=== PATIENT | male | born 1975 | race Caucasian/White ===

== ENCOUNTER 2018-01-24 09:39 | Emergency (ER) | payer OTHER ==
[~2018-01-24] VITALS: Ht 185.4 cm; Wt 86.4 kg
[2018-01-24] MEDS ORDERED: DIVA250T45 PO (10:08)
[2018-01-24] MEDS ORDERED: LISI-662 PO (10:08)
[2018-01-24] MEDS ORDERED: LOPE2 PO (10:08)
[2018-01-24] MEDS ORDERED: DIVA500T52 PO ×2 (10:08→11:01)
[2018-01-24] MEDS ORDERED: GABA-533 PO ×2 (10:08)
[2018-01-24] MEDS ORDERED: OMEP20 PO (10:09)
[2018-01-24] MEDS ORDERED: NALT50TA6 PO (10:09)
[2018-01-24] MEDS ORDERED: PRAZ5 PO (10:09)
[2018-01-24] MEDS ORDERED: NICO-703 TD (10:09)
[2018-01-24] MEDS ORDERED: RANI150T7 PO (10:09)
[2018-01-24 10:24] VITALS: BP 121/85
[2018-01-24] MEDS ORDERED: DIAZEPAM 5 MG TABLET PO ONE (10:45)
[2018-01-24] MEDS ORDERED: THIAMINE HCL 100 MG/ML 2ML VIAL IM ONE (10:45)
[2018-01-24] MEDS ORDERED: CYANOCOBALAMIN 1,000 MCG/ML VIAL IM ONE (10:45)
== END 2018-01-24 11:03 | disposition home or self-care (01) ==
LOC: EMS 09:42
DX: F10.239 Alcohol dependence with withdrawal, unspecified (principal); G43.909 Migraine, unspecified, not intractable, without status migrainosus; M54.9 Dorsalgia, unspecified; F41.9 Anxiety disorder, unspecified; M79.1 Myalgia; F19.10 Other psychoactive substance abuse, uncomplicated; F17.210 Nicotine dependence, cigarettes, uncomplicated; I10 Essential (primary) hypertension; Z76.0 Encounter for issue of repeat prescription
CPT/HCPCS: 96372; 99284; 99406; J3411; J3420

== ENCOUNTER 2018-01-30 15:14 | Emergency (ER) | payer OTHER ==
[~2018-01-30] VITALS: Ht 185.4 cm; Wt 86.0 kg
[~2018-01-30 15:14] MED LIST: DIVA500T52 PO; GABA-533 PO; LISI-662 PO; LOPE2 PO; NALT50TA6 PO; NICO-703 TD; OMEP20 PO; PRAZ5 PO; RANI150T7 PO
[2018-01-30] MEDS ORDERED: PSEUDOEPHEDRINE HCL 30 MG TABLET PO ONE (16:45)
[2018-01-30] MEDS ORDERED: FLUTICASONE PROPIONATE 50 MCG/SPRAY 16 GM NASAL SPRAY NASAL ONE (16:45)
[2018-01-30] MEDS ORDERED: IBUPROFEN 600 MG TABLET PO ONE (16:45)
[2018-01-30 17:27] VITALS: BP 114/77
== END 2018-01-30 17:46 | disposition home or self-care (01) ==
LOC: EMS 15:15
DX: J34.89 Other specified disorders of nose and nasal sinuses (principal); F15.10 Other stimulant abuse, uncomplicated; I10 Essential (primary) hypertension; F17.210 Nicotine dependence, cigarettes, uncomplicated
CPT/HCPCS: 99283; 99406